=== PATIENT | female | born 1965 | race Caucasian/White ===

== ENCOUNTER 2020-11-08 18:08 | Emergency (ER) | payer SELFPAY ==
[2020-11-08 18:35] LABS: #Eosinphils 0.3 10x3/uL (0.0-0.5); #Monocytes 0.5 10x3/uL (0.0-1.1); #Neutrophils 5.1 10x3/uL (1.5-8.4); %Basophils 0.4 % (0.0-2.0); %Eosinophils 3.7 % (0.0-6.0); %Lymphocytes 20.7 % (18.0-47.0); %Monocytes 6.9 % (0.0-10.0); %Neutrophils 67.5 % (40.0-75.0); Hemoglobin 12.8 g/dL (12.0-15.5); Mean Corpuscular HGB CONC 33.4 g/dL (32.0-36.0); Mean Corpuscular Hemoglobin 31.8 pg (27.0-33.0); Mean Corpuscular Volume 95.3 fl (81.6-98.3); Mean Platelet Volume 10.7 fl (7.4-10.4); Platelet Count 219 10x3/uL (150-450); RBC Distribution Width 12.5 % (11.5-14.5); Red Blood Cell (RBC) Count 4.02 10x6/uL (3.90-5.03); White Blood Cell (WBC) Count 7.6 10x3/uL (3.5-10.5)
[2020-11-08 18:46] LABS: ALT (SGPT) 16 U/L (8-55); AST (SGOT) 8 U/L (5-34); Albumin 3.9 g/dL (3.5-5.0); Alkaline Phosphatase 85 U/L (40-110); Anion Gap 15 mmol/L (10-20); BUN (Urea Nitrogen) 8 mg/dL (9.8-20.1); Bilirubin, Total 0.2 mg/dL (0.2-1.2); Calc. Creatinine Clearance 0 mL/min (70-130); Calcium 9.4 mg/dL (7.8-10.44); Carbon Dioxide 20 mmol/L (22-29); Chloride 108 mmol/L (98-107); Globulin 3.4 g/dL (2.4-3.5); Glucose 179 mg/dL (70-105); Potassium 3.5 mmol/L (3.5-5.1); Protein, Total 7.3 g/dL (6.0-8.3); Sodium 139 mmol/L (136-145)
[2020-11-08] MEDS ORDERED: cefTRIAXone\\ROCEPHIN 1 GM VIAL ONE (18:58)
[2020-11-08] MEDS ORDERED: Azithromycin 500 MG VIAL ONE (18:59)
[2020-11-08] MEDS ORDERED: Ventolin HFA Inhaler 60 PUFF INHALER ONE (19:04)
[2020-11-08] MEDS ORDERED: Morphine 1 ML ONE (19:25)
[2020-11-08 20:12] LABS: SARS-CoV-2 NAA Rapid Test Not Detected (NotDetected)
[2020-11-08] MEDS ORDERED: Morphine 4 MG/ML VIAL ONE (21:39)
[2020-11-08] MEDS ORDERED: Nicotine 14 MG PATCH ONE (23:10)
[2020-11-08 23:35] LABS: Bilirubin Neg (Negative); Blood, Urine 25 (Negative); Clarity Cloudy (Clear); Glucose, Urine (Dipstick) Normal (Negative); Ketone, Urine Negative (Negative); Leukocyte 500 (Negative); Nitrite Negative (Negative); Protein, Urine (Dipstick) 15 mg/dl (Neg-Trace); Urobilinogen Normal mg/dL (Less than 2)
[2020-11-08 23:44] LABS: Bacteria/HPF 2+ HPF (None Seen)
[2020-11-08 23:45] LABS: Mucous/LPF 1+ LPF (<2+)
== END 2020-11-09 00:02 | disposition short-term general hospital (02) ==
LOC: CSHERS 18:08
DX: J90 Pleural effusion, not elsewhere classified (principal); Z20.822 Contact with and (suspected) exposure to COVID-19; J44.9 Chronic obstructive pulmonary disease, unspecified; E11.9 Type 2 diabetes mellitus without complications; F17.210 Nicotine dependence, cigarettes, uncomplicated; Z79.899 Other long term (current) drug therapy; Z79.51 Long term (current) use of inhaled steroids
CPT/HCPCS: 71045; 71275; 80053; 81003; 81015; 83605; 83880; 84484; 85025; 85379; 87040; 93005; 94664; 94760; 96365; 96366; 96368; 96375; 96376; J0456; J0696; J2270; U0002

== ENCOUNTER 2021-02-19 17:54 | Emergency (ER) | payer SELFPAY ==
[2021-02-19] MEDS ORDERED: oxyCODONE 5 MG TAB PO SCH (22:00)
[2021-02-19] MEDS ORDERED: oxyCODONE/Acetaminophen 5 mg/325 mg Tablet PO SCH (22:00)
[2021-02-19] MEDS ORDERED: Acetaminophen 325 MG TAB PO SCH (22:15)
[2021-02-19] MEDS ORDERED: Acetaminophen 325 MG TAB ONE (22:15)
[2021-02-19] MEDS ORDERED: oxyCODONE 5 MG TAB ONE (22:17)
== END 2021-02-19 22:29 | disposition home or self-care (01) ==
LOC: CSHERS 17:54
DX: S62.616A Displaced fracture of proximal phalanx of right little finger, initial encounter for closed fracture (principal); S00.83XA Contusion of other part of head, initial encounter; E11.9 Type 2 diabetes mellitus without complications; J44.9 Chronic obstructive pulmonary disease, unspecified; F17.210 Nicotine dependence, cigarettes, uncomplicated; W19.XXXA Unspecified fall, initial encounter
CPT/HCPCS: 29130